=== PATIENT | male | born 1955 | race Caucasian/White ===

== ENCOUNTER 2023-06-15 11:32 | Day surgery (SDC) | payer MEDICARE, BC ==
[2023-06-15] VITALS (9 sets, daily range): BP systolic 112–138; BP diastolic 55–87; PULSE 55–71; RESP 12–17; TEMP 98.4; O2SAT 95–98
[~2023-06-15] VITALS: Ht 193 cm; Wt 95.3 kg
[2023-06-15] MEDS ORDERED: diphenhydrAMINE 25mg capsule PO PRN (12:05)
[2023-06-15] MEDS ORDERED: nitroGLYCERIN 0.4mg SUBLingual tab SL PRN ×2 (12:05→16:35)
[2023-06-15] MEDS ORDERED: normal saline 1,000 ML IV SCH (12:05)
[2023-06-15] MEDS ORDERED: LORazepam 0.5 MG tablet PO PRN (12:05)
[2023-06-15] MEDS ORDERED: FLO0.4C PO (12:09)
[2023-06-15] MEDS ORDERED: ATOR40TA72 PO (12:09)
[2023-06-15] MEDS ORDERED: METO25TA6 PO (12:09)
[2023-06-15] MEDS ORDERED: LISI10TA27 PO (12:09)
[2023-06-15] MEDS ORDERED: MULT-1085 PO (12:09)
[2023-06-15] MEDS ORDERED: fentaNYL/PF 50MCG/1 ML 2ML syringe ONE (14:18)
[2023-06-15] MEDS ORDERED: midazolam 1 mg/ML 2ml injection ONE (14:18)
[2023-06-15] MEDS ORDERED: LIDOcaine 1% 30ml preserv. free vial ONE (14:18)
[2023-06-15] MEDS ORDERED: iohexol 350MG/ML 100ml bottle IV ONE (14:18)
[2023-06-15] MEDS ORDERED: iohexol 350 MG/ML 50ML vial IV ONE (14:22)
[2023-06-15 15:22] LABS: ISTAT HGB ART 12.9 g/dl (14.0-17.9); ISTAT Hct ART 38 %PCV (42-52); ISTAT O2 SATURATION ARTERIAL 97 % (95-98); ISTAT SOURCE ART
[2023-06-15] MEDS ORDERED: proCHLORperazine 10 MG/2 ml inj IV PRN (16:35)
[2023-06-15] MEDS ORDERED: ondansetron/PF 4mg/2ml inj IV PRN (16:35)
[2023-06-15] MEDS ORDERED: HYDROcodone/acetaminophen 10/325mg tab PO PRN (16:35)
[2023-06-15] MEDS ORDERED: HYDROcodone/acetaminophen 5mg/325mg tablet PO PRN (16:35)
[2023-06-15] MEDS ORDERED: normal saline 1000ml 1,000 ML IV SCH (16:35)
[2023-06-15] MEDS ORDERED: OXAZEpam 15mg capsule PO PRN (16:35)
[2023-06-20 07:45] LABS: ISTAT Hct MIX 39 %PCV (42-52); ISTAT O2 SATURATION MIX VENOUS 74 % (60-80); ISTAT SOURCE VEN
== END 2023-06-15 20:20 | disposition home or self-care (01) ==
LOC: SSTAY O 11:32
PROVIDERS: ATTEND Internal Medicine Cardiovascular Disease
DX: I08.1 Rheumatic disorders of both mitral and tricuspid valves (principal); I25.10 Atherosclerotic heart disease of native coronary artery without angina pectoris; M47.819 Spondylosis without myelopathy or radiculopathy, site unspecified; E78.5 Hyperlipidemia, unspecified; N40.1 Benign prostatic hyperplasia with lower urinary tract symptoms; Z79.899 Other long term (current) drug therapy; Z98.890 Other specified postprocedural states; Z89.611 Acquired absence of right leg above knee
CPT/HCPCS: 36415; 82803; 83880; 84439; 84443; 84480; 85014; 93005; 93460; 99152; 99153; J1644; J2250; J3010; J3490; J7030; Q0163; Q9967; A6258; C1751; C1760